=== PATIENT | female | born 2000 | race Caucasian/White ===

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

== ENCOUNTER 2020-03-06 08:12 | Emergency (ER) | payer SELFPAY ==
[2017-11-04 14:26] VITALS: Ht 167.6 cm; Wt 86.4 kg
[~2020-03-06] VITALS: Ht 167.6 cm; Wt 86.4 kg
[2020-03-06] MEDS ORDERED: LISINOPRIL2.5 MG PO (10:00)
[2020-03-06 10:18] VITALS: BP 119/66
== END 2020-03-06 10:20 | disposition home or self-care (01) ==
LOC: D.ER 08:12
DX: R07.9 Chest pain, unspecified (principal); R03.0 Elevated blood-pressure reading, without diagnosis of hypertension

== ENCOUNTER 2020-08-16 23:43 | Emergency (ER) | payer SELFPAY ==
[~2020-08-16] VITALS: Ht 167.6 cm; Wt 81.8 kg
[~2020-08-16 23:43] MED LIST: LISINOPRIL2.5 MG PO
[2020-08-16 23:58] VITALS: BP 136/70; Ht 167.6 cm; Wt 81.8 kg
[2020-08-17] MEDS ORDERED: STERAPRED 5MG 65 M1 PO (00:34)
[2020-08-17] MEDS ORDERED: VOLTAREN75 MG PO (00:34)
== END 2020-08-17 00:42 | disposition home or self-care (01) ==
LOC: D.ER 23:43
DX: M25.561 Pain in right knee (principal)